=== PATIENT | male | born 1945 | race Caucasian/White ===

== ENCOUNTER 2024-12-07 14:44 | Emergency (ER) | payer MEDICARE, OTHER, SELFPAY ==
[2024-12-07] VITALS (8 sets, daily range): BP systolic 124–178; BP diastolic 69–83; PULSE 53–70; RESP 16–22; TEMP 36.2; O2SAT 98–99; BMI 25.0
--- NOTE | 2024-12-07 14:57 | DI.RAD.S_ITS ---
PROCEDURE: XR CHEST 1V INDICATIONS: Chest Pain TECHNIQUE: One view of the chest was acquired. COMPARISON: None. FINDINGS: Surgical changes and devices: Upper thoracic spinal hardware. Lungs and pleura: Lungs are clear. No pleural effusions or pneumothorax. Mediastinum: Mediastinal contours appear normal. Heart size is prominent. Bones and chest wall: No suspicious bony lesions. Overlying soft tissues appear unremarkable. IMPRESSION: No acute cardiopulmonary abnormality is seen. Dictated by: Hawk Alvarez M.D. on 12/07/2024 at 16:00 Approved by: Hawk Alvarez M.D. on 12/07/2024 at 16:01
--- NOTE | 2024-12-07 15:11 | EKG_ITS ---
[facility] [address], [place] [address] Test Date: 2024-12-07 Pat Name: Leonid Armenta Department: [facility] Room: Gender: Male Hash Slinger: : 1945 Requested By: Order Number: [id number] Reading MD: Avtar Torres MD Measurements Intervals [place] Rate: 63 P: -15 CO: 182 QRS: -21 QRSD: 90 T: 17 QT: 394 QTc: 403 Interpretive Statements Normal sinus rhythm Electronically Signed On 12-07-2024 17:27:07 PDT by Avtar Torres MD
[2024-12-07 15:23] LABS: Add Manual Diff / Slide Review NO; Basophils Absolute Auto 100 /uL (0-100); Basophils Percent Auto 0.9 % (0-2); Eosinophils Absolute Auto 200 /uL (0-450); Eosinophils Percent Auto 3.1 % (2-4); Hematocrit 40.8 % (41-53); Hemoglobin 13.8 g/dL (13.5-17.5); Lymphocytes Absolute Auto 1600 /uL (1100-4500); Lymphocytes Percent Auto 21.4 % (25-40); Mean Corpuscular HGB Conc 33.9 % (30-36); Mean Corpuscular Hemoglobin 29.4 PG (26-34); Mean Corpuscular Volume 86.6 fL (80-100); Monocytes Absolute Auto 500 /uL (0-900); Monocytes Percent Auto 6.9 % (3-14); Neutrophils Absolute Auto 5000 /uL (1500-7000); Neutrophils Percent Auto 67.7 % (50-75); Platelet Count 156 X10^3/uL (150-400); Red Blood Cell Count 4.71 X10^6/uL (4.5-5.9); Red Cell Distribution Width 14.5 % (11.6-14.8); White Blood Cell Count 7.4 X10^3/uL (4.5-11.0)
[2024-12-07 15:27] LABS: Prothrombin Time 11.5 SECONDS (9.4-12.5)
[2024-12-07 15:30] LABS: PTT Partial Thromboplastin Tim 31 SECONDS (25.1-36.5)
[2024-12-07 15:31] LABS: Lactate (Lactic Acid) 1.1 mmol/L (0.7-2.1)
[2024-12-07 15:32] LABS: Alanine Aminotransferase 23 IU/L (<50); Albumin 4.4 g/dL (3.5-5.0); Albumin Globulin Ratio 1.6 (1.0-2.8); Alkaline Phosphatase 45 U/L (38-126); Aspartate Aminotransferase 21 IU/L (17-59); BUN Creatinine Ratio 27.9 (6-22); Bilirubin Total 0.8 mg/dL (0.2-1.3); Blood Urea Nitrogen 29 mg/dL (9-20); Calcium 9.1 mg/dL (8.4-10.2); Carbon Dioxide 30 mmol/L (22-32); Chloride 103 mmol/L (98-107); Creatine Kinase 29 U/L (55-170); Estimated Glomerular Filt Rate > 60 mL/min (>60); Globulin 2.7 g/dL (1.7-4.1); Glucose 126 mg/dL (70-99); HEMOLYSIS < 15 (0-50); Lipase 22 U/L (23-300); Magnesium 1.7 mg/dL (1.6-2.3); Potassium 4.6 mmol/L (3.4-5.1); Sodium 137 mmol/L (137-145); Total Protein 7.1 g/dL (6.3-8.2)
[2024-12-07 15:43] LABS: NT-proBNP (BNP-Adult 18+) 141 pg/mL (<450); Troponin I < 0.012 ng/mL (0.01-0.034)
--- NOTE | 2024-12-07 16:09 | ED_ITS ---
HPI - Weakness General Chief complaint: Weakness Stated complaint: No strength , Time Seen by Provider: 12/07/24 15:43 Source: patient Mode of arrival: Ambulatory History of Present Illness HPI Narrative: Patient is from [facility] here with his brother visiting and to fish here for the next month. Patient has been very tired and can not sleep for the past 4 weeks. He is only getting 2 hours of sleep at night. Denies any headache chest pain abdominal pain. Has chronic neuropathy which is not new. Patient is on OxyContin and oxycodone. Patient is also on trazodone which a provider recently increased from 50 mg at night and is now 150 mg at night to help for sleep. Patient is also on melatonin. He used to be on Ambien and that helped him a lot. Denies any new stressors in life. Patient denies any cough cold congestion fever chills. No urinary complaints. No black or bloody stools. No chest pain or palpitations. Related Data Home Medications Medication Instructions Recorded Confirmed Calcium/Magnesium/Zinc 1 tab PO TID ##0 12/10/11 (#CALCIUM/MAGNESIUM/ZINC 1000 MG-500 MG-50 MG) OXYCODONE HYDROCHLORIDE (OXYCODONE 10 mg PO TID ##0 12/10/11 IR (CAP)) Pravastatin Sodium (PRAVASTATIN 40 mg PO HS ##0 12/10/11 SODIUM) aspirin 81 mg chewable tablet ##0 12/10/11 glyburide 2.5 mg tablet 2.5 mg PO Q DAY ##0 12/10/11 irbesartan 75 mg tablet (Avapro) 75 mg PO QDAY ##0 12/10/11 metformin 500 mg tablet 500 mg PO BIDCC ##0 12/10/11 (Glucophage) oxycodone 15 mg tablet,crush 15 mg PO BID ##0 12/10/11 resistant,extended release 12 hr (OxyContin) pregabalin 50 mg capsule (Lyrica) 50 mg PO Q DAY ##1 12/10/11 zolpidem 10 mg tablet 10 mg PO HS ##0 12/10/11 Previous Rx's Medication Instructions Recorded quetiapine 25 mg tablet (Seroquel) 25 mg PO BEDTIME #5 tabs 12/07/24 quetiapine 25 mg tablet 25 mg PO BEDTIME #10 tabs 12/11/24 Allergies Allergy/AdvReac Type Severity Reaction Status Date / Time No Known Drug Allergies Allergy Verified 12/07/24 16:34 Review of Systems Review of Systems Narrative: GENERAL: Negative chills, positive fatigue, malaise, sleep changes, negative fever, sweats. HEENT: Negative sinus pain, ear pain, sore throat RESPIRATORY: Negative dyspnea, cough CARDIOVASCULAR: Negative chest pain, palpitations GASTROINTESTINAL: Negative vomiting, nausea, abdominal pain : Negative dysuria, frequency, hematuria MUSCULOSKELETAL: Negative muscle or bony pain SKIN: Negative rash, skin lesions NEUROLOGIC: Negative weakness, numbness ROS Unobtainable: All systems reviewed & are unremarkable except as noted in HPI and below Patient History Social History Smoking Status: Never smoker Smoking Status: Never smoker Exam Narrative Exam Narrative: GENERAL: in no distress, not toxic not dyspneic HEAD: Normocephalic. EYES: Pupils equal round ENT: Mucous membranes moist. NECK: Trachea midline. No thyromegaly CARDIOVASCULAR: Regular rate and rhythm RESPIRATORY: Clear to auscultation. Breath sounds equal bilaterally. No wheezes, rales, or rhonchi. GASTROINTESTINAL: Abdomen soft, non-tender EXTREMITIES: No gross deformities. BACK: No flank tenderness. NEURO: AOx4. Clear speech SKIN: Warm and dry PSYCH: Not anxious, is cooperative Initial Vital Signs Initial Vital Signs: Vital Signs Temperature 97.2 F L 12/07/24 14:50 Pulse Rate 70 12/07/24 14:50 Respiratory Rate 16 12/07/24 14:50 Blood Pressure 124/70 12/07/24 14:50 Pulse Oximetry 98 12/07/24 14:50 Oxygen Delivery Method Room Air 12/07/24 14:50 Course Orders Ordered: Discontinued Medications Sodium Chloride (Normal Saline 0.9%) 1,000 mls @ 1,000 mls/hr IV BOLUS ONE Stop: 12/07/24 17:11 Last Infusion: 12/07/24 17:20 Dose: Infused Documented By: Admin: 12/07/24 16:15 Dose: 1,000 mls/hr Documented By: DAVEY Vital Signs Vital signs: Vital Signs - 8 hr 12/07/24 14:50 12/07/24 15:20 12/07/24 15:22 Temperature 97.2 F L Pulse Rate 70 62 Respiratory Rate 16 Blood Pressure 124/70 137/69 Pulse Oximetry 98 98 Oxygen Delivery Method Room Air 12/07/24 15:22 12/07/24 15:30 12/07/24 15:30 Temperature Pulse Rate 60 58 L Respiratory Rate 18 18 Blood Pressure 135/75 Pulse Oximetry 98 98 Oxygen Delivery Method 12/07/24 16:00 12/07/24 16:00 12/07/24 16:30 Temperature Pulse Rate 59 L 56 L Respiratory Rate 17 19 Blood Pressure 143/71 H Pulse Oximetry 98 99 Oxygen Delivery Method 12/07/24 16:30 12/07/24 17:00 12/07/24 17:00 Temperature Pulse Rate 53 L Respiratory Rate 20 Blood Pressure 156/77 H 178/83 H Pulse Oximetry 99 Oxygen Delivery Method 12/07/24 17:30 12/07/24 17:30 Temperature Pulse Rate 58 L Respiratory Rate 22 Blood Pressure 172/80 H Pulse Oximetry 99 Oxygen Delivery Method MDM - Weakness Lab Data 12/07/24 15:11 12/07/24 15:11 Labs: Lab Results 12/07/24 12/07/24 Range/Units 15:11 16:17 WBC 7.4 (4.5-11.0) X10^3/uL RBC 4.71 (4.5-5.9) X10^6/uL Hgb 13.8 (13.5-17.5) g/dL Hct 40.8 L (41-53) % MCV 86.6 (80-100) fL MCH 29.4 (26-34) PG MCHC 33.9 (30-36) % RDW 14.5 (11.6-14.8) % Plt Count 156 (150-400) X10^3/uL Neut % (Auto) 67.7 (50-75) % Lymph % (Auto) 21.4 L (25-40) % Charlton % (Auto) 6.9 (3-14) % Eos % (Auto) 3.1 (2-4) % Baso % (Auto) 0.9 (0-2) % Neut # (Auto) 5000 (6348-3341) /uL Lymph # (Auto) 1600 (9657-8472) /uL Charlton # (Auto) 500 (0-900) /uL Eos # (Auto) 200 (0-450) /uL Baso # (Auto) 100 (0-100) /uL PT 11.5 (9.4-12.5) SECONDS INR 1.0 (0.9-1.3) APTT 31 (25.1-36.5) SECONDS Sodium 137 (137-145) mmol/L Potassium 4.6 (3.4-5.1) mmol/L Chloride 103 (98-107) mmol/L Carbon Dioxide 30 (22-32) mmol/L BUN 29 H (9-20) mg/dL Creatinine 1.04 (0.66-1.25) mg/dL Estimated GFR > 60 (>60) mL/min BUN/Creatinine Ratio 27.9 H (6-22) Glucose 126 H (70-99) mg/dL Lactate 1.1 (0.7-2.1) mmol/L Calcium 9.1 (8.4-10.2) mg/dL Magnesium 1.7 (1.6-2.3) mg/dL Total Bilirubin 0.8 (0.2-1.3) mg/dL AST 21 (17-59) IU/L ALT 23 (<50) IU/L Alkaline Phosphatase 45 (38-126) U/L Total Creatine Kinase 29 L (55-170) U/L Troponin I < 0.012 (0.01-0.034) ng/mL NT-Pro-B Natriuret Pep 141 (<450) pg/mL Total Protein 7.1 (6.3-8.2) g/dL Albumin 4.4 (3.5-5.0) g/dL Globulin 2.7 (1.7-4.1) g/dL Albumin/Globulin Ratio 1.6 (1.0-2.8) Lipase 22 L (23-300) U/L TSH 4.45 (0.47-4.68) uIU/mL Urine Color Yellow Urine Appearance Clear Urine pH 5.5 (4.5-8.0) Ur Specific Brave >=1.030 H (1.000-1.035) Urine Protein Negative (Negative) Urine Glucose (UA) Negative (Negative) g/dL Urine Ketones Trace H (NEGATIVE) Urine Occult Blood Negative (Negative) Urine Nitrate Negative (Negative) Urine Bilirubin Negative (NEGATIVE) Urine Urobilinogen 0.2 (0.2) E.U./dL Ur Leukocyte Esterase Negative (NEGATIVE) Urine RBC 0-1/hpf (0-5/HPF) Urine WBC None seen (0-5/HPF) Ur Squamous Epith Cells 0-1 /hpf (0-5/HPF) Urine Bacteria None seen (None) Ur Culture Indicated? Cult not indicated Vol Urine Centrifuged 10ml (spun) Imaging Data Chest x-ray: Radiologist Impression: [address] [address] XRay Report Signed Patient: Leonid Armenta MR#: [id number] : 1945 Acct:[id number] Age/Sex: 79 / M Date of Service: 12/07/24 Loc: ED Accession Number: [id number] Procedure: XR chest 1V Ordering Provider: Hugh Cornelius MD PROCEDURE: XR CHEST 1V INDICATIONS: Chest Pain TECHNIQUE: One view of the chest was acquired. COMPARISON: None. FINDINGS: Surgical changes and devices: Upper thoracic spinal hardware. Lungs and pleura: Lungs are clear. No pleural effusions or pneumothorax. Mediastinum: Mediastinal contours appear normal. Heart size is prominent. Bones and chest wall: No suspicious bony lesions. Overlying soft tissues appear unremarkable. IMPRESSION: No acute cardiopulmonary abnormality is seen. Dictated by: Hawk Alvarez M.D. on 12/07/2024 at 16:00 Approved by: Hawk Alvarez M.D. on 12/07/2024 at 16:01 [facility] Narrative Medical decision making narrative: Patient is from [facility] with his brother visiting and to fish here for the next month. Patient has been very tired and can not sleep for the past 4 weeks. He is only getting 2 hours of sleep at night. Denies any headache chest pain abdominal pain. Has chronic neuropathy which is not new. Patient is on OxyContin and oxycodone. Patient is also on trazodone which a provider recently increased from 50 mg at night and is now 150 mg at night to help for sleep. Patient is also on melatonin. He used to be on Ambien and that helped him a lot. Denies any new stressors in life. Patient denies any cough cold congestion fever chills. No urinary complaints. No black or bloody stools. No chest pain or palpitations. Brother and patient states he is already getting testosterone and vitamin B 12 shots After history and exam, CBC CMP urinalysis TSH magnesium EKG chest x-ray troponin TSH MDM Medical records reviewed: No recent visit for this complaint Differential considered: Includes but not limited to fatigue insomnia dehydration arrhythmia UTI, anemia Lab Test results independently reviewed as above. Pertinent findings: WBC 7.4 hemoglobin 13.8 hematocrit 40 sodium 137 potassium 4.6 BUN 29 creatinine 1.04 GFR greater than 60 glucose 126 lactic acid 1.1 magnesium 1.7 troponin less than 0.012 BNP 141, TSH 4.45 urinalysis positive ketones Independently reviewed EKG normal sinus rhythm rate [address] elevation or depression Imaging studies independently reviewed: Chest x-ray no acute finding Consultations: None indicated at this time Re-evaluations: 5:47 p.m.. Reviewed results with patient and brother. They do agree likely his sleep deprivation contributing to his weakness and no energy. He is only getting 2 hours of sleep at night. He will stop his trazodone and I will try a short course of Seroquel at nighttime to help for his sleep. He will contact his family doctor for any changes in his medications as well. Return precautions reviewed. Not toxic at discharge. They desire discharge home. Discussion: Appropriate for discharge home. Short course trial for Seroquel will be provided. He will stop his trazodone at night. Return precautions reviewed. They desire discharge home. Diagnosis: Fatigue/insomnia Discharge Plan Departure Patient Disposition: Home Clinical Impression: Fatigue Qualifiers: Fatigue type: unspecified Qualified Code(s): R53.83 - Other fatigue Insomnia Qualifiers: Insomnia type: unspecified Qualified Code(s): G47.00 - Insomnia, unspecified Instructions: DI for Fatigue, DI for Insomnia Activity Restrictions/Additional Instructions: Your symptoms are likely due to lack of sleep. You are only getting 2 hours of sleep at night. This is not sufficient and can cause fatigue tired, trouble focusing. Please stop using your trazodone at night, short course of Seroquel has been prescribed for you to see if this helps for your sleep. If this does help, you will need family doctor to help for continued prescriptions. Keep well hydrated. Return if worse if any questions or concerns. Prescriptions: New quetiapine [Seroquel] 25 mg tablet 25 mg PO BEDTIME Qty: 5 0RF No Action Calcium/Magnesium/Zinc (#CALCIUM/MAGNESIUM/ZINC 1000 MG-500 MG-50 MG) 1 tab PO TID Qty: 0 metformin [Glucophage] 500 MG tablet 500 mg PO BIDCC Qty: 0 irbesartan [Avapro] 75 MG tablet 75 mg PO QDAY Qty: 0 zolpidem 10 MG tablet 10 mg PO HS Qty: 0 glyburide 2.5 MG tablet 2.5 mg PO Q DAY Qty: 0 pregabalin [Lyrica] 50 MG capsule 50 mg PO Q DAY Qty: 1 Pravastatin Sodium (PRAVASTATIN SODIUM) 40 mg PO HS Qty: 0 aspirin 81 MG tablet,chewable Qty: 0 oxycodone [OxyContin] 15 MG tablet,oral only,ext.rel.12 hr 15 mg PO BID Qty: 0 OXYCODONE HYDROCHLORIDE (OXYCODONE IR (CAP)) 10 mg PO TID Qty: 0 quetiapine 25 mg tablet 25 mg PO BEDTIME Qty: 10 0RF Stand Alone Forms: Patient Portal/API/Survey
[2024-12-07] MEDS: SODIUM CHLORIDE 0.9% 1,000 ML 1000 ML IV (16:15)
[2024-12-07 16:24] LABS: Appearance Urine UA CLEAR; Bilirubin Urine UA NEGATIVE (NEGATIVE); Color Urine UA YELLOW; Glucose Urine UA NEGATIVE (Negative); Ketones Urine UA TRACE (NEGATIVE); Leukocyte Esterase Urine UA NEGATIVE (NEGATIVE); Nitrite Urine UA NEGATIVE (Negative); Occult Blood Urine UA NEGATIVE (Negative); Protein Urine UA NEGATIVE (Negative); Specific Gravity Urine UA >=1.030 (1.000-1.035); Urobilinogen Urine UA 0.2 E.U./dL (0.2); pH Urine UA 5.5 (4.5-8.0)
[2024-12-07 16:47] LABS: Bacteria Urine None Seen; Culture Indicated Urine Cult Not Indicated; RBC Urine 0-1/HPF (0-5/HPF); Squamous Epithelial Cell Urine 0-1 /HPF (0-5/HPF); Urine Volume 10mL (spun); WBC Urine None Seen (0-5/HPF)
[2024-12-07 17:02] LABS: Thyroid Stimulating Hormone 4.45 uIU/mL (0.47-4.68)
== END 2024-12-07 18:10 | disposition home or self-care (01) ==
PROVIDERS: Emergency Provider Emergency Medicine
DX: G47.00 Insomnia, unspecified (principal); R53.83 Other fatigue; G62.9 Polyneuropathy, unspecified
CPT/HCPCS: 36415; 71045; 80053; 81001; 82550; 83605; 83690; 83735; 83880; 84443; 84484; 85025; 85610; 85730; 93005; 93010; 96360; 99284

== ENCOUNTER 2024-12-11 22:00 | Emergency (ER) | payer MEDICARE, OTHER, SELFPAY ==
[2024-12-11 22:08] VITALS: BP 185/88; PULSE 82; RESP 19; TEMP 36.4; O2SAT 98; BMI 25.4
--- NOTE | 2024-12-11 22:16 | DI.RAD.S_ITS ---
PROCEDURE: XR CHEST 1V INDICATIONS: Chest Pain TECHNIQUE: One view of the chest was acquired. COMPARISON: [facility], CR, XR CHEST 1V, 12/07/2024, 14:56. FINDINGS: Surgical changes and devices: Postsurgical changes are again seen in upper thoracic spine. Lungs and pleura: Mild pulmonary vascular congestion is seen. No focal infiltrate. No pleural effusions or pneumothorax. Mediastinum: Tortuous thoracic aorta. Heart size is enlarged. Bones and chest wall: No suspicious bony lesions. Overlying soft tissues appear unremarkable. IMPRESSION: Cardiomegaly and mild congestion. No definite focal infiltrate. No pleural effusion or pneumothorax. Dictated by: Rogelio Ortez M.D. on 12/11/2024 at 22:44 Approved by: Rogelio Ortez M.D. on 12/11/2024 at 22:44
--- NOTE | 2024-12-11 22:21 | EKG_ITS ---
[address] [address] [address] [address] Test Date: 2024-12-11 Pat Name: Leonid Armenta Department: [facility] Room: Gender: Male Area Secretary: : 1945 Requested By: Order Number: [id number] Reading MD: Avtar Torres MD Measurements Intervals [place] Rate: 81 P: -19 IN: 178 QRS: -18 QRSD: 90 T: 11 QT: 358 QTc: 415 Interpretive Statements Normal sinus rhythm Electronically Signed On 12-12-2024 7:43:22 PDT by Avtar Torres MD
[2024-12-11] MEDS: ASPIRIN 81 MG CHEW TAB 324 MG PO (22:24)
[2024-12-11 22:43] LABS: Add Manual Diff / Slide Review NO; Basophils Absolute Auto 100 /uL (0-100); Basophils Percent Auto 0.7 % (0-2); Eosinophils Absolute Auto 300 /uL (0-450); Hemoglobin 13.9 g/dL (13.5-17.5); Lymphocytes Absolute Auto 1400 /uL (1100-4500); Lymphocytes Percent Auto 13.1 % (25-40); Mean Corpuscular HGB Conc 34.6 % (30-36); Mean Corpuscular Hemoglobin 29.8 PG (26-34); Mean Corpuscular Volume 86.1 fL (80-100); Monocytes Absolute Auto 600 /uL (0-900); Monocytes Percent Auto 5.8 % (3-14); Neutrophils Absolute Auto 8000 /uL (1500-7000); Neutrophils Percent Auto 77.4 % (50-75); Platelet Count 143 X10^3/uL (150-400); Red Blood Cell Count 4.65 X10^6/uL (4.5-5.9); Red Cell Distribution Width 14.2 % (11.6-14.8); White Blood Cell Count 10.4 X10^3/uL (4.5-11.0)
[2024-12-11 22:47] LABS: INR 1.1 (0.9-1.3); Prothrombin Time 12.2 SECONDS (9.4-12.5)
[2024-12-11 22:48] VITALS: PULSE 75; RESP 27; O2SAT 96
[2024-12-11 22:50] LABS: PTT Partial Thromboplastin Tim 31 SECONDS (25.1-36.5)
[2024-12-11 22:52] LABS: Alanine Aminotransferase 28 IU/L (<50); Albumin 4.4 g/dL (3.5-5.0); Albumin Globulin Ratio 1.6 (1.0-2.8); Alkaline Phosphatase 52 U/L (38-126); Aspartate Aminotransferase 26 IU/L (17-59); BUN Creatinine Ratio 21.6 (6-22); Blood Urea Nitrogen 21 mg/dL (9-20); Carbon Dioxide 31 mmol/L (22-32); Chloride 100 mmol/L (98-107); Creatine Kinase 48 U/L (55-170); Estimated Glomerular Filt Rate > 60 mL/min (>60); Globulin 2.7 g/dL (1.7-4.1); Glucose 133 mg/dL (70-99); HEMOLYSIS < 15 (0-50); Lipase 34 U/L (23-300); Magnesium 1.7 mg/dL (1.6-2.3); Potassium 3.9 mmol/L (3.4-5.1); Sodium 137 mmol/L (137-145); Total Protein 7.1 g/dL (6.3-8.2)
[2024-12-11 23:00] VITALS: BP 171/82; PULSE 76; RESP 26; O2SAT 96
[2024-12-11 23:04] LABS: NT-proBNP (BNP-Adult 18+) 343 pg/mL (<450); Troponin I < 0.012 ng/mL (0.01-0.034)
[2024-12-11] MEDS: IPRATROPIUM 0.5 MG/2.5 ML NEB INH (23:25)
[2024-12-11 23:27] VITALS: O2SAT 97
[2024-12-11 23:30] VITALS: BP 166/84; PULSE 73; RESP 30; O2SAT 98
[2024-12-11 23:40] LABS: Influenza A - CEPHEID Flu A NEGATIVE (NEGATIVE); Influenza B - CEPHEID Flu B NEGATIVE (NEGATIVE); Respiratory Syncytial Virus POSITIVE (Negative)
[2024-12-11 23:42] LABS: COVID-19 CEPHEID 4-PLEX PCR Negative (Negative)
--- NOTE | 2024-12-11 23:43 | ED_ITS ---
HPI - Chest Pain General Chief Complaint: Chest Pain Stated Complaint: SOB was here 4 days ago Time Seen by Provider: 12/11/24 22:52 Source: patient Mode of arrival: Ambulatory History of Present Illness HPI narrative: 79-year-old male seen here 4 days ago with insomnia, had extensive cardiopulmonary workup unrevealing, discharged on quetiapine. Vader that was helpful in his requesting a refill of quetiapine. But predominantly is having cough and increasing shortness of breath since that visit. Still having the same type of insomnia. Denies chest pain. Denies lower extremity edema. Does not recall having history of heart failure. Related Data Home Medications Medication Instructions Recorded Confirmed Calcium/Magnesium/Zinc 1 tab PO TID ##0 12/10/11 (#CALCIUM/MAGNESIUM/ZINC 1000 MG-500 MG-50 MG) OXYCODONE HYDROCHLORIDE (OXYCODONE 10 mg PO TID ##0 12/10/11 IR (CAP)) Pravastatin Sodium (PRAVASTATIN 40 mg PO HS ##0 12/10/11 SODIUM) aspirin 81 mg chewable tablet ##0 12/10/11 glyburide 2.5 mg tablet 2.5 mg PO Q DAY ##0 12/10/11 irbesartan 75 mg tablet (Avapro) 75 mg PO QDAY ##0 12/10/11 metformin 500 mg tablet 500 mg PO BIDCC ##0 12/10/11 (Glucophage) oxycodone 15 mg tablet,crush 15 mg PO BID ##0 12/10/11 resistant,extended release 12 hr (OxyContin) pregabalin 50 mg capsule (Lyrica) 50 mg PO Q DAY ##1 12/10/11 zolpidem 10 mg tablet 10 mg PO HS ##0 12/10/11 Previous Rx's Medication Instructions Recorded quetiapine 25 mg tablet (Seroquel) 25 mg PO BEDTIME #5 tabs 12/07/24 quetiapine 25 mg tablet 25 mg PO BEDTIME #10 tabs 12/11/24 Allergies Allergy/AdvReac Type Severity Reaction Status Date / Time No Known Drug Allergies Allergy Verified 12/07/24 16:34 Patient History Social History Smoking Status: Never smoker Smoking Status: Never smoker Exam Narrative Exam Narrative: GENERAL: Well-developed patient, in mild distress. HEAD: Atraumatic. Normocephalic. EYES: Pupils equal round and reactive. Extraocular motions intact. No scleral icterus. No injection or drainage. ENT: Nose without bleeding, purulent drainage. Throat without erythema, tonsillar hypertrophy or exudate. Airway patent. NECK: Trachea midline. Non tender CARDIOVASCULAR: Regular rate and rhythm without murmurs, gallops, or rubs. RESPIRATORY: Clear to auscultation. Breath sounds equal bilaterally. No wheezes, rales, or rhonchi. GASTROINTESTINAL: Abdomen soft, non-tender, nondistended. EXTREMITIES: No edema or joint tenderness. BACK: Nontender without deformity or crepitance. No flank tenderness. NEURO: AOx3. Motor functions grossly nonfocal SKIN: No rash or erythema of visible areas Initial Vital Signs Initial Vital Signs: Vital Signs Temperature 97.5 F L 12/11/24 22:08 Pulse Rate 82 12/11/24 22:08 Respiratory Rate 19 12/11/24 22:08 Blood Pressure 185/88 H 12/11/24 22:08 Pulse Oximetry 98 12/11/24 22:08 Oxygen Delivery Method Room Air 12/11/24 22:08 Course Orders Ordered: ED Orders 12/11/24 22:16 XR chest 1V Stat EKG-12 Lead Stat RT Consult Eval and Treat NOW 12/11/24 22:33 Complete Blood Count AUTO DIFF Stat Comprehensive Metabolic Panel Stat Covid-19 + FLU A/B + RSV - PCR Stat Lactate (Lactic Acid) Stat Lipase Stat Magnesium Stat NT-proBNP (BNP-Adult 18+) Stat PTT Partial Thromboplastin Gurmeet Stat Prothrombin Time INR Stat Troponin & CK Cardiac Panel Stat Discontinued Medications Albuterol (Albuterol Hfa Prepack) 1 box MISC DIRECTED ONE Stop: 12/11/24 23:55 Last Admin: 12/12/24 00:08 Dose: 1 box Documented By: AB Aspirin (Aspirin 81 Mg Chew Tab) 324 mg PO NOW ONE Stop: 12/11/24 22:17 Last Admin: 12/11/24 22:24 Dose: 324 mg Documented By: SB Ipratropium Aurora (Ipratropium 0.5 Mg/2.5 Ml Neb) 0.5 mg INH NOW ONE Stop: 12/11/24 23:07 Last Admin: 12/11/24 23:25 Dose: 0.5 mg Documented By: DS Quetiapine Fumarate (Quetiapine 25 Mg Tablet) 25 mg PO NOW ONE Stop: 12/12/24 00:12 Last Admin: 12/12/24 00:14 Dose: 25 mg Documented By: AB Vital Signs Vital signs: Vital Signs - 8 hr 12/11/24 22:08 12/11/24 22:48 12/11/24 23:00 Temperature 97.5 F L Pulse Rate 82 75 Respiratory Rate 19 27 H Blood Pressure 185/88 H 171/82 H Pulse Oximetry 98 96 Oxygen Delivery Method Room Air 12/11/24 23:00 12/11/24 23:27 12/11/24 23:30 Temperature Pulse Rate 76 73 Respiratory Rate 26 H 30 H Blood Pressure Pulse Oximetry 96 97 98 Oxygen Delivery Method Room Air 12/11/24 23:30 12/12/24 00:00 12/12/24 00:00 Temperature Pulse Rate 72 Respiratory Rate 22 Blood Pressure 166/84 H 163/78 H Pulse Oximetry 97 Oxygen Delivery Method Room Air MDM - Chest Pain Lab Data Attestation: I reviewed the patient's lab results. Lab results narrative: White blood cell count 05210, hemoglobin 13.9, platelets adequate. Basic metabolic panel unremarkable. Liver functions normal. Troponin negative. BNP not particularly elevated. Lipase normal. Respiratory swab positive for RSV, negative for COVID and for influenzas. 12/11/24 22:33 12/11/24 22:33 Labs: Lab Results 12/11/24 Range/Units 22:33 WBC 10.4 (4.5-11.0) X10^3/uL RBC 4.65 (4.5-5.9) X10^6/uL Hgb 13.9 (13.5-17.5) g/dL Hct 40.0 L (41-53) % MCV 86.1 (80-100) fL MCH 29.8 (26-34) PG MCHC 34.6 (30-36) % RDW 14.2 (11.6-14.8) % Plt Count 143 L (150-400) X10^3/uL Neut % (Auto) 77.4 H (50-75) % Lymph % (Auto) 13.1 L (25-40) % [place] % (Auto) 5.8 (3-14) % Eos % (Auto) 3.0 (2-4) % Baso % (Auto) 0.7 (0-2) % Neut # (Auto) 8000 H (6095-9817) /uL Lymph # (Auto) 1400 (4404-9612) /uL [place] # (Auto) 600 (0-900) /uL Eos # (Auto) 300 (0-450) /uL Baso # (Auto) 100 (0-100) /uL PT 12.2 (9.4-12.5) SECONDS INR 1.1 (0.9-1.3) APTT 31 (25.1-36.5) SECONDS Sodium 137 (137-145) mmol/L Potassium 3.9 (3.4-5.1) mmol/L Chloride 100 (98-107) mmol/L Carbon Dioxide 31 (22-32) mmol/L BUN 21 H (9-20) mg/dL Creatinine 0.97 (0.66-1.25) mg/dL Estimated GFR > 60 (>60) mL/min BUN/Creatinine Ratio 21.6 (6-22) Glucose 133 H (70-99) mg/dL Lactate 1.0 (0.7-2.1) mmol/L Calcium 9.0 (8.4-10.2) mg/dL Magnesium 1.7 (1.6-2.3) mg/dL Total Bilirubin 1.0 (0.2-1.3) mg/dL AST 26 (17-59) IU/L ALT 28 (<50) IU/L Alkaline Phosphatase 52 (38-126) U/L Total Creatine Kinase 48 L (55-170) U/L Troponin I < 0.012 (0.01-0.034) ng/mL NT-Pro-B Natriuret Pep 343 (<450) pg/mL Total Protein 7.1 (6.3-8.2) g/dL Albumin 4.4 (3.5-5.0) g/dL Globulin 2.7 (1.7-4.1) g/dL Albumin/Globulin Ratio 1.6 (1.0-2.8) Lipase 34 D (23-300) U/L SARS-CoV-2 (PCR) Negative (Negative) Influenza A (RT-PCR) Flu a negative (NEGATIVE) Influenza B (RT-PCR) Flu b negative (NEGATIVE) RSV (PCR) Positive A (Negative) Imaging Data Chest x-ray: Radiologist's Impression: Close Chest X-Ray (Signed) Rogelio Ortez - 12/11/24 Chest X-Ray (Signed) Hawk Alvarez - 12/07/24 Launch?Image [address] [address] XRay Report Signed Patient: Leonid Armenta MR#: [id number] : 1945 Acct:[id number] Age/Sex: 79 / M Date of Service: 12/11/24 Loc: ED Accession Number: [id number] Procedure: XR chest 1V Ordering Provider: Barney Ibarra MD PROCEDURE: XR CHEST 1V INDICATIONS: Chest Pain TECHNIQUE: One view of the chest was acquired. COMPARISON: [facility], , XR CHEST 1V, 12/07/2024, 14:56. FINDINGS: Surgical changes and devices: Postsurgical changes are again seen in upper thoracic spine. Lungs and pleura: Mild pulmonary vascular congestion is seen. No focal infiltrate. No pleural effusions or pneumothorax. Mediastinum: Tortuous thoracic aorta. Heart size is enlarged. Bones and chest wall: No suspicious bony lesions. Overlying soft tissues appear unremarkable. IMPRESSION: Cardiomegaly and mild congestion. No definite focal infiltrate. No pleural effusion or pneumothorax. Dictated by: Rogelio Ortez M.D. on 12/11/2024 at 22:44 Approved by: Rogelio Ortez M.D. on 12/11/2024 at 22:44 ECG Data Attestation: I personally reviewed and interpreted this ECG as follows: Interpretation: Normal sinus rhythm with rate of 81. No obvious ST segment elevation or depression changes. SD 178, QRS 90, QTC 415. [facility] Narrative Medical decision making narrative: 79-year-old male recent evaluation here 4 days ago for insomnia had extensive cardiopulmonary workup at that time unrevealing, discharged on a 5 day trial course of quetiapine which he found helpful. He requests refill of quetiapine for an ongoing insomnia recurrent after he ran out of quetiapine. Now complaining of dry cough and increasing shortness of breath. Lungs clear, no crackles or wheezes. No oxygen requirement. Chest x-ray negative. Respiratory swab positive for RSV, negative for COVID and for influenzas. Discussion of supportive respiratory treatment. Trial of albuterol, inhaler dispensed with spacer, 2 puffs 4 times daily for the next week and then as needed. Refill prescription sent for his quetiapine for the next 10 days. Advised further refills through PCP. Recheck lungs if not improved with PCP in the next couple of days. Return precautions discussed. Discharged home. Discharge Plan Departure Patient Disposition: Home Clinical Impression: Dyspnea, Insomnia, RSV (respiratory syncytial virus infection) Activity Restrictions/Additional Instructions: Recent ED evaluation for insomnia, discharged on quetiapine/Seroquel 25 mg at night which he seemed to think was helpful, requesting refill. You also had shortness of breath and some cough since that visit. Chest x-ray without obvious pneumonia changes. No oxygen requirement. Lungs clear. No respiratory distress. Swab was negative for COVID, negative for influenza a, negative for influenza B, but positive for RSV. There is no treatment for respiratory syncytial virus infection. Treatment is supportive. Consider use of inhaler. Refill of your quetiapine/Seroquel. Recheck symptoms and longer-term insomnia treatment strategy with your regular doctor this next week. Return earlier to this/nearest emergency department for any change worsening symptoms or any concerns prior. Prescriptions: New quetiapine 25 mg tablet 25 mg PO BEDTIME Qty: 10 0RF No Action Calcium/Magnesium/Zinc (#CALCIUM/MAGNESIUM/ZINC 1000 MG-500 MG-50 MG) 1 tab PO TID Qty: 0 metformin [Glucophage] 500 MG tablet 500 mg PO BIDCC Qty: 0 irbesartan [Avapro] 75 MG tablet 75 mg PO QDAY Qty: 0 zolpidem 10 MG tablet 10 mg PO HS Qty: 0 glyburide 2.5 MG tablet 2.5 mg PO Q DAY Qty: 0 pregabalin [Lyrica] 50 MG capsule 50 mg PO Q DAY Qty: 1 Pravastatin Sodium (PRAVASTATIN SODIUM) 40 mg PO HS Qty: 0 aspirin 81 MG tablet,chewable Qty: 0 oxycodone [OxyContin] 15 MG tablet,oral only,ext.rel.12 hr 15 mg PO BID Qty: 0 OXYCODONE HYDROCHLORIDE (OXYCODONE IR (CAP)) 10 mg PO TID Qty: 0 quetiapine [Seroquel] 25 mg tablet 25 mg PO BEDTIME Qty: 5 0RF Referrals: Miscellaneous,Doctor, MD [Primary Care Provider] - Stand Alone Forms: Patient Portal/API/Survey
[2024-12-12] VITALS: BP 163/78; PULSE 72; RESP 22; O2SAT 97
[2024-12-12] MEDS: ALBUTEROL HFA PREPACK 1 BOX MISC (00:08)
--- NOTE | 2024-12-12 00:08 | PC.NURSE ---
Educated pt on spacer. Return demonstration given
[2024-12-12] MEDS: QUETIAPINE 25 MG TABLET PO (00:14)
== END 2024-12-12 00:15 | disposition home or self-care (01) ==
PROVIDERS: Emergency Provider Emergency Medicine
DX: R06.00 Dyspnea, unspecified (principal); G47.00 Insomnia, unspecified; B97.4 Respiratory syncytial virus as the cause of diseases classified elsewhere
CPT/HCPCS: 0241U; 36415; 71045; 80053; 82550; 83605; 83690; 83735; 83880; 84484; 85025; 85610; 85730; 93005; 93010; 94640; 99284